=== PATIENT | male | born 1965 | race African-American/Black ===

== ENCOUNTER 2017-02-08 05:37 | Emergency (ER) | payer MEDICAID ==
[~2017-02-08] VITALS: Ht 167.6 cm; Wt 74.8 kg
--- NOTE | 2017-02-08 06:16 | Emergency Room Report ---
History of Present Illness General Chief Complaint: General Complaint Source: Patient Present Illness HPI Is a 51-year-old male with no significant past medical history. He presents with chief complaint of eating breakfast. 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 He said that he has blood disfraction. He take any may have parasite also. He has been another hospital within last month or 2. He also want crutches for mobility impairment. He has a previous left leg surgery. He walked in here without a problem. Allergies: Coded Allergies: No Known Allergies (Unverified , 02/08/17) Patient History Past Medical History: see triage record, old chart reviewed Past Surgical History: other Pertinent Family History: none Social History: Denies: smoking Immunizations: other Reviewed Nursing Documentation: PMH: Agreed, PSxH: Agreed Nursing Documentation-PM Past Medical History: No Stated History Review of Systems Constitutional: Reports: weakness Eye: Denies: blurred vision, eye pain ENT: Denies: ear pain, nose congestion, throat swelling Respiratory: Denies: cough, shortness of breath Cardiovascular: Denies: chest pain, palpitations Gastrointestinal: Denies: abdominal pain, diarrhea, nausea, vomiting Musculoskeletal: Denies: back pain, joint pain Skin: Denies: rash Neurological: Denies: headache, numbness Endocrine: Denies: increased thirst, increased urine Hematologic/Lymphatic: Denies: easy bruising All Other Systems: negative except mentioned in HPI Physical Exam Vital Signs Date Time Temp Pulse Resp B/P Pulse Ox O2 Delivery O2 Flow Rate FiO2 02/08/17 06:05 98.1 87 16 141/83 98 Room Air vitals unremarkable Sp02 EP Interpretation: reviewed, normal General Appearance: well appearing, no apparent distress, alert Head: normocephalic, atraumatic Eyes: bilateral eye EOMI, bilateral eye PERRL ENT: hearing grossly normal, normal pharynx Neck: full range of motion, supple, no meningismus Respiratory: chest non-tender, lungs clear, normal breath sounds Cardiovascular #1: regular rate, rhythm, no murmur Gastrointestinal: normal bowel sounds, non tender, no mass, no organomegaly, no bruit, non-distended Musculoskeletal: back normal, gait/station normal, normal range of motion Psychiatric: mood/affect normal Skin: warm/dry Medical Decision Making Diagnostic Impression: Primary Impression: Encounter for generalized patient complaints ER Course Patient with multiple complaints. He sitting comfortably reading. He walked in here without any problem. I see no indication for x-rays or blood work. We' ll discharge home. Last Vital Signs Date Time Temp Pulse Resp B/P Pulse Ox O2 Delivery O2 Flow Rate FiO2 02/08/17 06:05 98.1 87 16 141/83 98 Room Air Status: improved Disposition: HOME, SELF-CARE Condition: Stable Additional Instructions: Followup with your Dr. 7 days. Return for any concern. ARIANNA GILLESPIE M.D. February 08, 2017 06:16
[2017-02-08 06:22] VITALS: BP 141/83
== END 2017-02-08 06:25 | disposition home or self-care (01) ==
LOC: EMR 06:17
DX: Z04.8 Encounter for examination and observation for other specified reasons (principal); R53.1 Weakness
CPT/HCPCS: 99282